=== PATIENT | female | born 1945 | race Caucasian/White ===

== ENCOUNTER 2020-04-10 12:57 | Outpatient (CLI) | payer MEDICARE, OTHER, SELFPAY ==
--- NOTE | ~2020-04-10 | XR_ITS ---
EXAMINATION: XR lg joint inject/asp w image DATE: 04/10/2020 14:32 INDICATION: Unilateral primary osteoarthritis of the right hip. TECHNIQUE: A time-out was performed to verify the patient's name, date of , and procedure to b e performed. The procedure including the risks, benefits, and alternatives was discussed with the pat ient. Risks discussed included bleeding and infection. The patient understood the risks and agreed to proceed. The skin overlying the right hip joint was prepped and draped in usual sterile fashion. A nesthetic was administered with 1% lidocaine subcutaneously. A 22 G needle was advanced under fluoro scopic guidance into the joint. Injection of 0.6 mL of Omnipaque 240 confirmed intra-articular posit ion of the needle. Subsequently, injectate consisting of 7 mL of a 5:2 mixture of 1% lidocaine: 10 m g/mL Kenalog for a total dose of 20 mg Kenalog was instilled. Washout of contrast was seen confirming intra-articular administration. The needle was removed and the entry site was cleaned and dressed. There were no immediate complications. Fluoroscopy exposure time was 0.1 minutes. The total number of images was 2. FINDINGS: Real-time fluoroscopy demonstrates the needle in the right hip joint. Patient's pain prior to procedure:4/10. Patient's pain following the procedure: 11/09. Moderate osteoarthritis at the righ t hip. IMPRESSION: 1. Right hip joint injection of local anesthetic and steroid with decrease in the patient's presentin g pain. Reviewed, dictated and finalized at location A. IMPRESSION: 1. Right hip joint injection of local anesthetic and steroid with decrease in t he patient's presenting pain.
== END 2020-04-10 12:58 | disposition home or self-care (01) ==
PROVIDERS: Visit Provider Orthopaedic Surgery
DX: M16.11 Unilateral primary osteoarthritis, right hip (principal)
CPT/HCPCS: 20610; 77002; J3301; Q9966

== ENCOUNTER 2021-01-02 12:43 | Inpatient (IN) | payer MEDICARE, OTHER, SELFPAY ==
[2021-01-02] VITALS (10 sets, daily range): BP systolic 118–149; BP diastolic 72–89; PULSE 78–99; RESP 16–20; TEMP 36.1–36.8; O2SAT 94–100; BMI 24.5
--- NOTE | ~2021-01-02 | XR_ITS ---
EXAMINATION: XR chest 1V portable EXAM DATE: 01/02/2021 13:13 INDICATION: Chest pain. TECHNIQUE: Portable AP frontal chest x-ray was obtained. There is no prior study for comparison. FINDINGS: Right upper lobe granuloma. The lungs are otherwise clear. There are no pleural effusions. Cardiac silhouette is prominent but magnified on this AP technique. There is no pneumothorax susp ected. The bones and soft tissues are unremarkable. IMPRESSION: No acute cardiopulmonary findings. Reviewed, dictated and finalized at location A. L WINDOW SCREEN ASSEMBLER
--- NOTE | ~2021-01-02 | CT_ITS ---
EXAMINATION: CTA chest PE protocol DATE: 01/02/2021 14:18 INDICATION: Right chest pain. TECHNIQUE: Computed tomography angiography (CTA) of the chest was performed with 100 mL Omnipaque-350 intravenous contrast timed to evaluate the pulmonary arteries. Coronal maximum intensity projection 3D-reconstructions were created by the technologist. Automated exposure control and iterative reconst ruction technique were employed. The dose-length product was 196.65 mGy-cm. COMPARISON: Chest single view 01/02/2021 FINDINGS: There is mild scarring at right lung apex. There is normal atelectasis bilaterally. A calci fied right lung nodule and calcified right hilar lymph nodes are consistent with old granulomatous di sease. There is a small pneumatocele in right lower lobe. No pleural effusion. Cardiomegaly is noted. There is no pulmonary embolus. There is mild aortic atherosclerosis. Splenomegaly is noted measuring at least 14.9 cm. There is a 13 mm cyst in the liver. There is moderate thoracic spondylosis. There are ill-defined areas of sclerosis scattered in many of the bones including the ribs, sternum, and T1 1 vertebral body. IMPRESSION: 1. No pulmonary embolus. 2. Scattered sclerotic lesions of bone. The differential diagnosis includes myelofibrosis, metastatic disease, and metabolic abnormality. 3. Splenomegaly. Reviewed, dictated and finalized at location A. E FILLER IMPRESSION: 1. No pulmonary embolus. 2. Scattered sclerotic lesions of bone. The differential diagnosis includes mye lofibrosis, metastatic disease, and metabolic abnormality. 3. Splenomegaly.
--- NOTE | 2021-01-02 12:48 | ED.CHESTPAIN ---
HPI - Chest Pain General Chief Complaint: Chest Pain Stated Complaint: chest pain Time Seen by Provider: 01/02/21 12:48 History of Present Illness HPI narrative: 75 yo female w/ h/o PCV, myelofibrosis presents to the ED for chest/shoulder pain. Pain by the right scapula and radiating into the chest for the past 2 days. Made worse by deep breathing. Associated with fatigue. She had her first COVID-19 vaccination 8 days ago. No fever, nausea, vomiting, cough, SOB. Related Data Home Medications Medication Instructions Recorded Confirmed aspirin 81 mg tablet,delayed 81 mg PO DAILY 04/02/20 01/02/21 release biotin 5,000 mcg disintegrating 5,000 mcg PO DAILY tablet 04/02/20 01/02/21 tablet cholecalciferol (vitamin D3) 50 50 mcg PO DAILY 04/02/20 01/02/21 mcg (2,000 unit) capsule diltiazem HCl 180 mg 180 mg PO DAILY 04/02/20 01/02/21 capsule,extended release 24 hr losartan 100 mg tablet 100 mg PO DAILY 04/02/20 01/02/21 paroxetine HCl 10 mg tablet 5 mg PO DAILY tablet 04/02/20 01/02/21 pregabalin 150 mg capsule 150 mg PO DAILY 04/02/20 01/02/21 ruxolitinib 10 mg tablet 15 mg PO BID 04/02/20 01/02/21 Allergies Allergy/AdvReac Type Severity Reaction Status Date / Time No Known Allergies Allergy Mild Verified 01/02/21 13:01 Review of Systems Review of Systems: All systems reviewed & are unremarkable except as noted in HPI and below Constitutional: Constitutional: Denies chills, Reports fatigue and Denies fever(s) ENT: Reports dizziness Cardiovascular: Cardiovascular: Reports chest pain and Denies radiating jaw, neck or arm pain Respiratory: Respiratory: Denies cough and Denies dyspnea Gastrointestinal: Gastrointestinal: Denies abdominal pain and Denies nausea Neurologic: Reports dizziness and Denies weakness [facility] Past Medical History Medical History (Updated 01/03/21 @ 15:32 by Rik Ardon MD) Hypertension 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 Code status: Full code. Smoking packs per day: 0.25 Smoking cigarettes per day: 5.0 Years smoked: 10 Smoking pack-years: 2.50 Smoking status: Former smoker Tobacco type: cigarettes Alcohol intake: current Additional living arrangements comments: The patient lives in [place] with her . Additional occupation/education comments: Retired from the [employer]. Gender identity (if verbalized by the patient): Female Spiritual care concerns: No Exam Const: General: healthy appearing, no acute distress and alert Orientation/consciousness: patient oriented x3 HENMT: Head: normal to inspection Eyes: Conjunctivae: conjunctivae normal Pupils: Equal, round and reactive pupils present EOM: EOMs intact bilaterally Resp: Effort & Inspection: normal respiratory effort Auscultation: clear to auscultation bilaterally Cardio: Rate: regular rate Rhythm: regular rhythm GI: Inspection: non-distended Skin: General skin exam: normal color Neuro: General: patient oriented x3, moves all extremities, no focal motor deficits and CN's II-XI intact bilaterally Speech: normal speech Gait exam (Neuro): Normal gait present Extrem: General: normal to inspection Course Vital Signs Vital signs: Vital Signs Temperature 36.6 C 01/02/21 12:56 Pulse Rate 87 01/02/21 12:56 Respiratory Rate 20 01/02/21 12:56 Blood Pressure 141/89 H 01/02/21 12:56 Pulse Oximetry 100 01/02/21
--- NOTE | 2021-01-02 12:59 | ECG_ITS ---
Measurements Intervals [place] Rate: 80 P: 51 DC: 149 QRS: 2 QRSD: 85 T: 6 QT: 392 QTc: 452 Interpretive Statements SINUS RHYTHM BORDERLINE ST ABNORMALITY- ANTEROLATERAL LEADS BASELINE WANDER- II, III, AVF BORDERLINE ECG Electronically Signed On 01-02-2021 13:35:38 GM MOBILE by Ivan Roche D.O.
[2021-01-02 13:19] LABS: Hematocrit 41.9 % (37.0-47.0); Hemoglobin 12.9 g/dL (12.0-15.0); Mean Corpuscular HGB Conc 30.8 g/dl (32-36); Mean Corpuscular Hemoglobin 24.2 pg (26-34); Mean Corpuscular Volume 78.6 fl (80-100); Mean Platelet Volume 10.5 fl (7.4-10.4); Platelet Count Result 710 k/mm3 (150-375); Red Blood Count 5.33 M/mm3 (4.2-5.4); Red Cell Distribution Width 22.2 % (11.5-14.5)
[2021-01-02 13:25] LABS: White Blood Count 57.6 K/mm3 (4.5-10.0)
[2021-01-02 13:28] LABS: INR 1.2; Prothrombin Time 15.6 Seconds (11.1-14.7)
[2021-01-02 13:30] LABS: Anion Gap 8 mmol/L (8-16); Blood Urea Nitrogen 13 mg/dL (7-17); Calcium 9.1 mg/dL (8.4-10.2); Carbon Dioxide 29 mmol/L (22-30); Chloride 104 mmol/L (98-107); Estimated CRCL calculation 31 ml/min; Estimated Glomerular Filt Rate 54; Glucose 97 mg/dL (65-105); Potassium 3.7 mmol/L (3.4-5.0); Sodium 141 mmol/L (137-145)
[2021-01-02 13:40] LABS: D Dimer 0.67 ug/mL (<0.48)
[2021-01-02 13:41] LABS: Band Neutrophils Percent 9 % (0-6); Basophils Absolute Manual 1.72 K/mm3 (0.0-0.1); Basophils Percent Manual 3 % (0-1); Eosinophils Absolute Manual 1.15 K/mm3 (0.02-0.5); Eosinophils Percent Manual 2 % (0-4); Lymphocytes Absolute Manual 6.91 K/mm3 (1.1-4.5); Monocytes Absolute Manual 5.18 K/mm3 (0.1-0.90); Monocytes Percent Manual 9 % (3-9); Neutrophils Absolute Manual 42.62 K/mm3 (1.7-7.2); Neutrophils Percent Manual 65 % (46-73); Platelet Estimate Increased (Adequate); Total Cells Counted 100
[2021-01-02 13:42] LABS: Ovalocytes 1+ (NORMAL)
[2021-01-02 13:45] LABS: Add Urine Microscopic? YES; Appearance Urine Cloudy (Clear); Bacteria Urine Trace /hpf; Bilirubin Urine Negative (Negative); Blood Urine Negative (Negative); Color Urine Yellow (Yellow); Glucose Urine UA Negative (Negative); Ketones Urine Negative (Negative); Leukocyte Esterase Ur 3+ LEU/UL (Negative); Mucus Urine Rare /lpf; Nitrate Urine Negative (Negative); Protein Urine Negative (Negative); Specific Grav Ur 1.009 (1.001-1.035); Squamous Epithelial Cell Urine Few /hpf (Few); Urobilinogen Urine Negative mg/dL (<2.0); WBC Urine 31-50 /hpf
[2021-01-02 13:48] LABS: Troponin I 0.212 ng/mL (0.000-0.034)
--- NOTE | 2021-01-02 14:04 | PC.NURSE ---
called lab, Vee, added on BNP [id number]
[2021-01-02 14:25] LABS: NT Pro B Type Natriuretic Pept 2800 PG/ML (5-100)
[2021-01-02] MEDS: ASPIRIN 81 MG CHEWABLE TABLET 324 MG PO (14:34)
[2021-01-02] MEDS: MORPHINE SULFATE (*CRX) 2 MG/ML INJ IV PUSH (14:34)
--- NOTE | 2021-01-02 16:00 | PM.IMHP ---
H&P: HPI History of Present Illness Date/Time: 01/02/21 16:00 Chief Complaint: Chest pain. 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 She reports sharp, right anterior chest pain over the past couple of days radiating into the scapula. The pain seems to be worse with deep inspiration and she has not noticed any significant alleviating factors. She has also felt much more fatigued than usual. Today while walking up a flight of steps she became significantly winded and felt as though her heart was beating hard. Additionally she describes about a 5 minutes time. In which her vision was somewhat blurry while watching television. Initially there were concerns for pulmonary embolism but a CTA of the chest in the emergency department was negative for such. Her troponin was elevated and she is being admitted in this setting. At the time my evaluation she continues to have intermittent right anterior chest discomfort but states is improved since receiving morphine. She walks 20 minutes on the treadmill most days a week and has never had exertional chest pain or shortness of breath. She denies associated nausea, vomiting, and sweats. No epigastric or abdominal discomfort. She denies GERD and indigestion symptoms. Review of Systems Review of Systems: Narrative: Twelve systems were reviewed with pertinent positives and negatives as per HPI. White blood cell count was 19764 in September 2020. She has not required therapeutic phlebotomy for about 4 months. No fever, chills, or sweats. No recent cold or flu symptoms. She denies cough. No vertigo, diplopia, auditory changes, focal weakness, or paresthesias. No dysuria, urgency, hesitancy, or incontinence. Except as documented, all other systems were reviewed and are negative. 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 Code status: Full code. Smoking packs per day: 0.25 Smoking cigarettes per day: 5.0 Years smoked: 10 Smoking pack-years: 2.50 Smoking status: Former smoker Tobacco type: cigarettes Alcohol intake: current Additional living arrangements comments: The patient lives in [place] with her . Additional occupation/education comments: Retired from the [employer]. Gender identity (if verbalized by the patient): Female Spiritual care concerns: No Meds Home Medications and Allergies Home Medications Medication Instructions Recorded Confirmed Type aspirin 81 mg tablet,delayed 81 mg PO DAILY 04/02/20 01/02/21 History release biotin 5,000 mcg disintegrating 5,000 mcg PO DAILY tablet 04/02/20 01/02/21 History tablet cholecalciferol (vitamin D3) 50 50 mcg PO DAILY 04/02/20 01/02/21 History mcg (2,000 unit) capsule diltiazem HCl 180 mg 180 mg PO DAILY 04/02/20 01/02/21 History capsule,extended release 24 hr losartan 100 mg tablet 100 mg PO DAILY 04/02/20 01/02/21 History paroxetine HCl 10 mg tablet 5 mg PO DAILY tablet 04/02/20 01/02/21 History pregabalin 150 mg capsule 150 mg PO DAILY 04/02/20 01/02/21 History ruxolitinib 10 mg tablet 15 mg PO BID 04/02/20 01/02/21 History Allergies Allergy/A
[2021-01-02 16:02] LABS: Troponin I 0.235 ng/mL (0.000-0.034)
--- NOTE | 2021-01-02 16:05 | PC.NURSE ---
called to give report. states RN unavailable and will call back
--- NOTE | 2021-01-02 16:14 | PC.NURSE ---
called to give report. States RN in pt room and will call back
--- NOTE | 2021-01-02 18:52 | PC.NURSE ---
This patient, Laurel Gibbs, was admitted to IMU Room 201-01 at 1641. Patient/family oriented to hospital policies and general routines including ID bracelet, bed and alarms, visiting hours, pain management, procedures, bathroom and other care routines, personal items, smoking policy, room service/diet, and visiting hours. Information on how to activate the Rapid Response Team has been discussed. Patient/Family are encouraged to report perceived risks to care and to ask questions if they do not understand what they are told or what they should do.
--- NOTE | 2021-01-02 19:56 | ECG_ITS ---
Measurements Intervals [place] Rate: 85 P: 60 [place]: 174 QRS: -5 QRSD: 77 T: -5 QT: 376 QTc: 450 Interpretive Statements SINUS RHYTHM SUPRAVENTRICULAR TRIGEMINY AND VENTRICULAR PREMATURE COMPLEX BORDERLINE T WAVE ABNORMALITY- INFERIOR LEADS ABNORMAL ECG Electronically Signed On 01-03-2021 6:57:38 SURFACING TECHNICIAN by Ivan Roche D.O.
[2021-01-02 20:03] LABS: Magnesium 2.1 mg/dL (1.6-2.3)
[2021-01-02] MEDS: ENOXAPARIN 60 MG/0.6 ML SYRINGE SUB-Q (20:05)
[2021-01-02 20:18] LABS: Troponin I 0.268 ng/mL (0.000-0.034)
[2021-01-02 20:33] LABS: Erythrocyte Sedimentation Rate 5 mm/hr (0-20)
[2021-01-02 20:43] LABS: Alanine Aminotransferase 13 U/L (4-35); Alkaline Phosphatase 94 U/L (38-126); Aspartate Amino Transferase 46 U/L (14-36); Bilirubin,Total 0.4 mg/dL (0.2-1.3)
[2021-01-02] MEDS: ACETAMINOPHEN 325 MG TABLET 650 MG PO (20:57)
[2021-01-02 20:58] LABS: CRP 2.8 mg/dL (<1.0)
[2021-01-03] VITALS (21 sets, daily range): BP systolic 100–135; BP diastolic 67–91; PULSE 60–136; RESP 12–16; TEMP 36.1–37.1; O2SAT 94–99
--- NOTE | 2021-01-03 | ECHO_ITS ---
Patient Info Name: Laurel Gibbs Age: 75 years : 1945 Gender: Female Ht: 61 in Wt: 126 lbs BSA: 1.58 m2 HR: 115 bpm BP: 130 / 91 mmHg Heart Rhythm: Sinus Rhythm Technical Quality: Good Exam Date: 01/03/2021 12:20 PM Exam Location: [facility] Pulmonary Patient Status: Inpatient Admit Date: 01/03/2021 Staff Ordering Physician: Can Lo MD Lens Engraver: Jessi Ulloa RDCS Attending Provider: Can Lo MD Exam Type: CA echo doppler color flow Summary 1. Left ventricular chamber dimension is normal. 2. Left ventricular systolic function is hyperdynamic, estimated at >70%. 3. Systolic function is hyperdynamic. 4. Left atrial chamber dimension is moderately enlarged. 5. The mitral valve has normal leaflets. 6. The mitral valve annulus is moderately calcified. 7. There is a large mobile well-circumscribed mass associated with the posterior mitral valve leaflet. 8. This mitral valve mass could represent a vegetation or a myxoma of unusual location. Left Ventricle Left ventricular chamber dimension is normal. Left ventricular systolic function is hyperdynamic, estimated at >70%. The left ventricular diastolic function is normal. Systolic function is hyperdynamic. Right Ventricle Right ventricular chamber dimension is normal. Left Atria Left atrial chamber dimension is moderately enlarged. Right Atria Right atrial chamber dimension is normal. Aortic Valve The aortic valve is trileaflet. There is mild aortic valve sclerosis. Pulmonic Valve The pulmonic valve is not well visualized. Mitral Valve The mitral valve has normal leaflets. There is trace mitral valve regurgitation. Large mitral valve vegetation visualized. The mitral valve annulus is moderately calcified. There is a large mobile well-circumscribed mass associated with the posterior mitral valve leaflet. This mitral valve mass could represent a vegetation or a myxoma of unusual location. Tricuspid Valve The tricuspid valve leaflets are normal. Pericardium/Pleural The pericardium appears normal. Aorta The aortic root size at the sinus of Valsalva is normal. Left Ventricular Outflow Tract Name Value Normal LVOT 2D LVOT Diameter 1.8 cm LVOT Doppler LVOT Peak Velocity 107 cm/s LVOT Peak Gradient 4 mmHg LVOT Mean Gradient 2 mmHg LVOT VTI 17 cm LVOT VTI/AV VTI Ratio 0.7 LVOT Stroke Volume 45 ml LVOT CO 4.4 l/min LVOT CI 2.8 l/min/m2 Pulmonic Valve Name Value Normal PV Doppler PV Peak Velocity 67 cm/s PV Peak Gradient 2 mmHg Mitral Valve
[2021-01-03 05:32] LABS: Hematocrit 41.5 % (37.0-47.0); Hemoglobin 12.9 g/dL (12.0-15.0); Mean Corpuscular HGB Conc 31.1 g/dl (32-36); Mean Corpuscular Hemoglobin 24.7 pg (26-34); Mean Corpuscular Volume 79.3 fl (80-100); Mean Platelet Volume 10.5 fl (7.4-10.4); Platelet Count Result 619 k/mm3 (150-375); Red Blood Count 5.23 M/mm3 (4.2-5.4); Red Cell Distribution Width 22.5 % (11.5-14.5); White Blood Count 47.5 K/mm3 (4.5-10.0)
[2021-01-03 05:45] LABS: Anion Gap 6 mmol/L (8-16); Blood Urea Nitrogen 13 mg/dL (7-17); Calcium 8.7 mg/dL (8.4-10.2); Carbon Dioxide 29 mmol/L (22-30); Chloride 106 mmol/L (98-107); Estimated CRCL calculation 36 ml/min; Estimated Glomerular Filt Rate > 60; Glucose 93 mg/dL (65-105); Potassium 3.6 mmol/L (3.4-5.0); Sodium 141 mmol/L (137-145)
[2021-01-03] MEDS: ENOXAPARIN 60 MG/0.6 ML SYRINGE SUB-Q ×2 (06:19→16:39)
[2021-01-03 07:51] LABS: Cholesterol 109 mg/dL (0-200); HDL Direct 22 mg/dL; Triglycerides 110 mg/dL (<150)
[2021-01-03 08:02] LABS: LDL Cholesterol Direct 58 mg/dL
[2021-01-03 08:07] LABS: Troponin I 0.228 ng/mL (0.000-0.034)
[2021-01-03] MEDS: LOSARTAN POTASSIUM 100 MG TABLET PO (09:11)
[2021-01-03] MEDS: PREGABALIN (*CRX) 75 MG CAPSULE 150 MG PO (09:11)
[2021-01-03] MEDS: dilTIAZem HCL CD 180 MG CAP.ER.24H PO (09:12)
[2021-01-03] MEDS: ASPIRIN 81 MG ENTERIC TABLET PO (09:12)
[2021-01-03] MEDS: CHOLECALCIFEROL 1,000 UNITS TABLET 2000 UNITS PO (09:12)
--- NOTE | 2021-01-03 09:52 | PM.IMPN ---
Progress Note: A&P Assessment and Plan (1) Atrial fibrillation: Code(s): I48.91 - Unspecified atrial fibrillation Status: Acute Assessment and Plan: Patient this morning developed tachycardia. Tele reviewed showing AFib. Stat EKG showing AFib with RVR and ST depression in the anterolateral leads with PVC. Start Metoprolol. IV metoprolol times one. Continue full dose Lovenox. Cardiology has been consulted and appreciate their input. Check TSH (2) Right-sided chest pain: Code(s): R07.9 - Chest pain, unspecified Status: Acute Assessment and Plan: Atypical presentation for cardiac pain but with positive Troponin. CTA chest showing no PE but splenomegaly and myelofibrosis. Troponin peaked at 0.27. EKG on admission showing borderline ST changes but overall normal appearing EKG. Therapeutic dose of Lovenox started. Continue ASA. Lipid panel results noted. Add Lipitor. As above, will also add Metoprolol. (3) Elevated troponin: Code(s): R77.8 - Other specified abnormalities of plasma proteins Status: Acute Assessment and Plan: In the setting of atypical right-sided chest pain. Troponin peaked at 0.27. As above. (4) Hypertension: Qualifiers: Hypertension type: essential hypertension Qualified Code(s): I10 - Essential (primary) hypertension Code(s): I10 - Essential (primary) hypertension Status: Chronic Assessment and Plan: Blood pressures reviewed 3/6 Blood pressure remains well controlled. Will continue current medications with Diltiazem for now. (5) Abnormal urinalysis: Code(s): R82.90 - Unspecified abnormal findings in urine Status: Acute Assessment and Plan: Urinalysis showing 3+ LE with 31-50WBC. No abx started. UCx pending. 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 WBC 58K on admisison but better today at 47K. Plt count elevated as well but trending down. No anemia. Ruxolitinib resumed. (7) DVT prophylaxis: Code(s): Z29.9 - Encounter for prophylactic measures, unspecified Status: Acute Assessment and Plan: Currently on Lovenox therapeutic dose Subjective Date/time seen: 01/03/21 09:52 Interval history: Date of service 01/03 75yo female with HTN, PCV and myelofibrosis here for chest pain. Chest pain was in the upper right chest and radiated to the right upper back. Not pleuritic. Not associated with food. s/p CCY. Chest pain gone now but feels 'terrible' with achiness, WISDOM and fatigue. No SOB, nausea or vomiting. Does have upper abd pain. No anosmia or dysgeusia. No fever, chills. No cough, dysuria or hematuria. She has been having dificulty starting a urine stream and voiding only small volumes. Also had a toe pulled recently and area still feels sore at times. Complains also of left lower back pain. Exam Narrative: Exam Narrative: AF 98.7 130/91 136 16 97% ra Gen - NARD sitting up at the side of the bed Chest - CTA bilaterally, nml RR CV - tachycardic, irregular; Tele showing AFib with RVR Abd - Soft, ND, Positive BS with mild epigastric pain and fullness. possible spleen tip appreciated. Back - pain in the right marlene sacral region; no CVA tenderness Ext - No pedal edema, 2+ DP bilaterally Neuro - Alert and oriented. Nonfocal exam. Psych - Nml mood and affect Skin - Warm and dry Objective Data Vital Signs Vital Signs: Vital Signs - 24 hr 01/02/21 12:56 01/02/21 13:01 01/02/21 14:37 Temperature 97.8 F Pulse Rate 87 87 96 Respiratory Rate 20 20 Blood Pressure 141/89 H 149/88 H Pulse Oximetry 100 100 01/02/21 15:52 01/02/21 16:37 01/02/21 16:41 Temperature Pulse Rate 99 99 87 Respirat
--- NOTE | 2021-01-03 09:59 | ECG_ITS ---
Measurements Intervals [place] Rate: 131 P: SC: 0 QRS: 15 QRSD: 78 T: -21 QT: 313 QTc: 462 Interpretive Statements ATRIAL FIBRILLATION WITH RAPID VENTRICULAR RESPONSE VENTRICULAR PREMATURE COMPLEX ST-T WAVE ABNORMALITY IN ANTEROLATERAL LEADS- CONSIDER ISCHEMIA ABNORMAL ECG Electronically Signed On 01-03-2021 15:04:26 DIRECTOR OF MEDICAL EDUCATION by Ivan Roche D.O.
--- NOTE | 2021-01-03 10:44 | PM.CNCAR ---
Assessment and Plan Additional Plan This is a 75-year-old lady who has a history of myelofibrosis presenting to the hospital with a chest pain syndrome that seems to be nonischemic by history. Incidentally while she is in the hospital she has been found to have paroxysmal atrial fibrillation. It sounds like by history she probably has is going on off and on at home but has not really brought it up to her physicians attention. I do not believe we need to initiate an ischemia workup at this time as her troponin levels are out of normal range but they are flat without a any typical pattern of an acute coronary syndrome. I am going to recommend starting antiarrhythmic therapy in the form of sotalol and for that reason I will discontinue her diltiazem at this time. I am going to keep her on Lovenox for the time being she is on full-dose Lovenox and therefore is systemically anticoagulated. An echocardiogram has already been ordered by the hospitalist I will review that later in terms of the structural basis of this atrial fib. The told the patient and her that I would anticipate her being in the hospital for probably a couple of days while we initiate antiarrhythmic therapy to assess her response to this. After I look at the echocardiogram, probably tomorrow we will transition her to a oral anticoagulant. Thank you for asking me to see this lady in consultation. Epifanio Gonsales MD [facility] History of Present Illness History of Present Illness Consult date/time: 01/03/21 10:44 Consult reason: chest pain and atrial fibrillation Reason For Visit: chest pain Narrative: This is a 75-year-old woman who is being seen in consultation request this morning at the hospitalist request initially because of abnormal troponin values and also this morning because of atrial fibrillation. She had does not have any history of any known cardiac pathology in the past. She came to the emergency room yesterday primarily because she was having some chest pain. This started couple of days ago she described a relatively sharp intermittent pain in the right precordial region radiating back to the right interscapular region. This discomfort would be aggravated by taking a deep breath when it was there otherwise she had no other aggravating or alleviating symptoms. In the emergency room her electrocardiogram did not show any acute ischemic or injury abnormalities her troponin level was interestingly elevated at 0.2 and she was thusly admitted to the hospital. In the hospital IMU she has been feeling reasonably well overnight she still has some of this pain off and on that is as described above. Interestingly this morning she reverted from sinus rhythm to atrial fib with moderately rapid ventricular response heart rate seems to be in the 120-130 range. She is minimally aware of this. She states that at home for maybe a couple of years or more she has episodes where she does notice tachycardia and palpitations if she is sitting quietly or lying in bed. The symptoms generally do not cause her to be in any other distress and they usually resolve a short time on their own so she has really not brought them up for medical discussion when she sees her physician. She has an internists that she sees for hypertension in general medical needs out at [facility]. She also has the diagnosis of polycythemia rubra vera and what she describes as a transition into of myelofibrosis syndrome within the last couple of years. She therefore has a very high platelet count and a high white cell count. She follows with a environmental services project manager at [facility] for that. Review of Systems Constitutional: Constitutional: Reports no additional constitutional complaints Eyes: Eyes: Reports no additional eye complaints ENT: Reports system reviewed and no additional complaints, except as documented Cardiovascular: Cardiovascular: Reports palpitations Respiratory: Respiratory: Reports no additional respi
[2021-01-03] MEDS: METOPROLOL TARTRATE INJ 5 MG/5 ML VIAL IV PUSH (10:45)
[2021-01-03] MEDS: ACETAMINOPHEN 325 MG TABLET 650 MG PO (10:54)
--- NOTE | 2021-01-03 11:30 | PHAR ---
Drug Name: Jakafi Ingredients: Ruxolitinib Phosphate -- 15 MG Related Documents: DRUGDEX Evaluations - RUXOLITINIB Color: White Shape: Oval Imprint: 15 , INCY Form: Oral Tablet
[2021-01-03] MEDS: PARoxetine 5 MG TABLET PO (11:52)
[2021-01-03] MEDS: SOTALOL HCL 80 MG TABLET PO ×2 (11:52→20:44)
[2021-01-03] MEDS: PANTOPRAZOLE 40 MG TABLET PO (11:52)
[2021-01-03] MEDS: ATORVASTATIN 40 MG TABLET PO (11:53)
[2021-01-03] MEDS: AMPICILLIN SULB 3 GM/NS 100 ML 3 GM/100 ML VIAL IVPB ×3 (13:21→23:24)
--- NOTE | 2021-01-03 13:55 | ECG_ITS ---
Measurements Intervals [place] Rate: 75 P: 69 TN: 175 QRS: -3 QRSD: 80 T: -40 QT: 286 QTc: 320 Interpretive Statements SINUS RHYTHM NONSPECIFIC ST & T-WAVE ABNORMALITY- ANTEROLAT/INF LEADS BASELINE ARTIFACT- I, II, AVR, AVL, AVF, V3-V6 BORDERLINE ECG Electronically Signed On 01-03-2021 15:10:18 OBGYN NURSE by Ivan Roche D.O.
--- NOTE | 2021-01-03 22:45 | ECG_ITS ---
Measurements Intervals [place] Rate: 78 P: 67 VA: 169 QRS: 21 QRSD: 85 T: -34 QT: 429 QTc: 491 Interpretive Statements SINUS RHYTHM FREQUENT ATRIAL PREMATURE COMPLEXES NONSPECIFIC ST & T-WAVE ABNORMALITY- ANTEROLAT/INF LEADS ABNORMAL ECG Electronically Signed On 01-04-2021 7:39:45 BOILER FIREMAN by Ivan Roche D.O.
[2021-01-04] VITALS (19 sets, daily range): BP systolic 97–129; BP diastolic 65–90; PULSE 68–92; RESP 14–16; TEMP 36.1–36.9; O2SAT 97–98
[2021-01-04] MEDS: ENOXAPARIN 60 MG/0.6 ML SYRINGE SUB-Q (05:54)
[2021-01-04] MEDS: AMPICILLIN SULB 3 GM/NS 100 ML 3 GM/100 ML VIAL IVPB ×4 (05:54→23:57)
[2021-01-04 06:33] LABS: Anion Gap 3 mmol/L (8-16); Blood Urea Nitrogen 13 mg/dL (7-17); Calcium 8.8 mg/dL (8.4-10.2); Carbon Dioxide 29 mmol/L (22-30); Chloride 110 mmol/L (98-107); Estimated CRCL calculation 33 ml/min; Estimated Glomerular Filt Rate 54; Glucose 98 mg/dL (65-105); Potassium 3.5 mmol/L (3.4-5.0); Sodium 142 mmol/L (137-145)
[2021-01-04] MEDS: SOTALOL HCL 80 MG TABLET PO ×2 (08:52→21:12)
[2021-01-04] MEDS: PARoxetine 5 MG TABLET PO (08:53)
[2021-01-04] MEDS: PANTOPRAZOLE 40 MG TABLET PO (08:54)
[2021-01-04] MEDS: LOSARTAN POTASSIUM 100 MG TABLET PO (08:54)
[2021-01-04] MEDS: ATORVASTATIN 40 MG TABLET PO (08:55)
[2021-01-04] MEDS: CHOLECALCIFEROL 1,000 UNITS TABLET 2000 UNITS PO (08:55)
[2021-01-04] MEDS: ASPIRIN 81 MG ENTERIC TABLET PO (08:55)
[2021-01-04] MEDS: PREGABALIN (*CRX) 75 MG CAPSULE 150 MG PO (08:58)
--- NOTE | 2021-01-04 09:58 | PM.PNCARD ---
Progress Note: A&P Additional Plan 75-year-old lady with paroxysmal atrial fibrillation now in sinus rhythm on sotalol anticoagulated with Lovenox. I am going to shift her to apixaban starting with this evening's dose. Because of her mitral valve mass lesion air aerobic anaerobic and fungal blood cultures are being done. My clinical suspicion however is that this is not endocarditis since the patient is not clinically septic and there is minimal if any mitral regurgitation. Typically a large vegetation such as this would have caused an of structural disruption of the valved resulted significant regurgitation. This has resulted in some enlargement of her left atrium which appears to be the etiology of her atrial fibrillation. If she is maintaining sinus rhythm and having no proarrhythmic issues she can probably be discharged tomorrow if her blood cultures remained sterile. She will need to follow up with cardiothoracic surgery for this mitral valve mass lesion. Patient has indicated that any invasive procedures and/or surgery would need to be done downtown at [facility] as per the recommendation of her client service supervisor as I mentioned in my H and P. Epifanio Gonsales MD [facility] Subjective Date/time seen: Date of service: 01/04/21 09:58 Interval history: 75-year-old lady with: Paroxysmal atrial fibrillation seen in consultation yesterday and started on sotalol. Shortly after the 1st dose she has converted back to sinus rhythm is currently asymptomatic. She is currently anticoagulated with Lovenox. Echocardiogram done yesterday surprisingly shows a large mass associated with the posterior mitral valve leaflet. I received a phone notification of this yesterday from the geoscience technician indicating they were concerned about a vegetation. 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 Had a long discussion with the patient about this today. She is asymptomatic and feels well Exam Const: General: comfortable and no acute distress HENMT: Mouth: Yes moist mucous membranes Eyes: Sclera: sclerae normal Pupils: Equal, round and reactive pupils present Neck: Neck: supple and no JVD Thyroid: thyroid normal Resp: Effort & Inspection: normal respiratory effort Auscultation: clear to auscultation bilaterally Cardio: Rate: regular rate Rhythm: regular rhythm Other: Patient has a systolic ejection murmur at the right upper sternal border because of her aortic sclerosis. No audible MR GI: GI Palp: Yes Soft to palpation Auscultation: normal bowel sounds Skin: General skin exam: normal color Neuro: Cognition (Neuro): normal cognition Extrem: General: normal to inspection Objective Data Vital Signs Vital Signs: Vital Signs - 24 hr 01/03/21 10:00 01/03/21 10:45 01/03/21 11:52 Temperature Pulse Rate 136 H 135 H 113 H Respiratory Rate Blood Pressure Pulse Oximetry 01/03/21 12:00 01/03/21 12:48 01/03/21 14:00 Temperature 36.7 C Pulse Rate 113 H 85 76 Respiratory Rate 12 Blood Pressure 113/70 Pulse Oximetry 95 01/03/21 16:00 01/03/21 18:00 01/03/21 19:22 Temperature 37.0 C 36.2 C L Pulse Rate 75 84 91 Respiratory Rate 16 15 Blood Pressure 100/69 109/67 Pulse Oximetry 96 96 01/03/21 20:00 01/03/21 20:44 01/03/21 22:00 Temperature Pulse Rate 82 63 60 Respiratory Rate Blood Pressure Pulse Oximetry 01/03/21 23:37 01/04/21 00:00 01/04/21 02:00 Temperature 36.2 C L Pulse Rate 78 79 72 Respiratory Rate 16 Blood Pressure 117/81 Pulse Oximetry 94 01/04/21 04:00 01/04/21 06:00 01/04/21 07:58 Temperature 36.1 C L 36.1 C L Pulse Rate 74 76 75 Respiratory Rate 16 16 Blood Pressure 124/79 129/90 Pulse Oximetry 97 98 01/04/21 08:52 Temperature Pulse Rate
--- NOTE | 2021-01-04 11:00 | ECG_ITS ---
Measurements Intervals [place] Rate: 78 P: 70 MN: 164 QRS: 2 QRSD: 84 T: -19 QT: 382 QTc: 437 Interpretive Statements SINUS RHYTHM ATRIAL PREMATURE COMPLEXES NONSPECIFIC ST & T-WAVE ABNORMALITY- DIFFUSE LEADS BASELINE ARTIFACT- I, II, AVR, AVL, AVF BORDERLINE ECG Electronically Signed On 01-04-2021 14:19:45 SERVICE TEAM LEADER by Ivan Roche D.O.
[2021-01-04] MEDS: LOPERAMIDE HCL 2 MG CAPSULE PO (11:51)
--- NOTE | 2021-01-04 15:08 | PM.IMPN ---
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 Called by RN on 01/03/21 and BCx ordered and IV abx stared. Patient has had a recent tooth pulled and she is immunosuppressed. She does not have significant valvular damage. Discussed with Cardiology. Plan to monitor blood cultures with IV antibiotics on board. If blood cultures remain negative for 2 days, will plan discharge with patient to follow-up with Cardiothoracic surgery given the high likelihood myxoma. (2) Atrial fibrillation: Code(s): I48.91 - Unspecified atrial fibrillation Status: Acute Assessment and Plan: Patient developed AFib and probably paroxysmal by hx. EKG showing AFib with RVR and ST depression in the anterolateral leads with PVC. TSH normal. Given IV metoprolol and started on Sotalol. Full dose Lovenox but now changed to Eliquis. She has converted with sinus arrhythmias and PACs now. Cardiology following and appreciate their input. (3) Right-sided chest pain: Code(s): R07.9 - Chest pain, unspecified Status: Acute Assessment and Plan: Atypical presentation for cardiac pain but with positive Troponin. CTA chest showing no PE but splenomegaly and myelofibrosis. Troponin peaked at 0.27. EKG on admission showing borderline ST changes but overall normal appearing EKG. Continue ASA. Lipid panel results noted. Continue Lipitor. Suspect realted to the AFib. (4) Elevated troponin: Code(s): R77.8 - Other specified abnormalities of plasma proteins Status: Acute Assessment and Plan: In the setting of atypical right-sided chest pain. Troponin peaked at 0.27. As above. (5) Hypertension: Qualifiers: Hypertension type: essential hypertension Qualified Code(s): I10 - Essential (primary) hypertension Code(s): I10 - Essential (primary) hypertension Status: Chronic Assessment and Plan: Blood pressures reviewed 3/ Blood pressure remains well controlled. Will continue current medications with Cozaar. (6) Abnormal urinalysis: Code(s): R82.90 - Unspecified abnormal findings in urine Status: Acute Assessment and Plan: Urinalysis showing 3+ LE with 31-50WBC. UCx growing mixed ancelmo suggesting contaminate. 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 WBC 58K on admission but better yesterday at 47K. Plt count elevated as well but trending down. No anemia. Ruxolitinib resumed. 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 Feels much yareli. No CP or palpitations. She has been having episodes of palpitations mostly at night prior to admission. No n/v. Having loose stools from the abx which is not uncommon for her. Exam Narrative: Exam Narrative: AF 98.4 123/84 77 14 98% ra Gen - NARD Chest - CTA bilaterally, nml RR CV - irregular, no murmurs; Tele showing sinus arrhythmia, PACs Abd - Soft, NT/ND, Positive BS. Ext - No pedal edema, 2+ DP bilaterally Neuro - Alert and oriented. Psych - Nml mood and affect Skin - Warm and dry Objective Data Vital Signs Vital Signs: Vital Signs - 24 hr 01/03/21 16:00 01/03/21 18:00 01/03/21 19:22 Temperature 98.6 F 97.2 F L Pulse Rate
[2021-01-04] MEDS: APIXABAN 5 MG TABLET PO (21:13)
[2021-01-05] VITALS (8 sets, daily range): BP systolic 127–131; BP diastolic 65–93; PULSE 61–94; RESP 14–16; TEMP 36.2–36.7; O2SAT 96–98
[2021-01-05 04:43] LABS: Hematocrit 40.2 % (37.0-47.0); Hemoglobin 12.5 g/dL (12.0-15.0); Mean Corpuscular HGB Conc 31.1 g/dl (32-36); Mean Corpuscular Hemoglobin 24.4 pg (26-34); Mean Corpuscular Volume 78.5 fl (80-100); Platelet Count Result 615 k/mm3 (150-375); Red Blood Count 5.12 M/mm3 (4.2-5.4); Red Cell Distribution Width 22.1 % (11.5-14.5)
[2021-01-05 05:02] LABS: Alanine Aminotransferase 13 U/L (4-35); Albumin Level 3.9 g/dL (3.5-5.1); Alkaline Phosphatase 72 U/L (38-126); Anion Gap 5 mmol/L (8-16); Aspartate Amino Transferase 36 U/L (14-36); Bilirubin,Total 0.4 mg/dL (0.2-1.3); Blood Urea Nitrogen 11 mg/dL (7-17); Calcium 8.9 mg/dL (8.4-10.2); Carbon Dioxide 27 mmol/L (22-30); Chloride 107 mmol/L (98-107); Estimated CRCL calculation 41 ml/min; Estimated Glomerular Filt Rate > 60; Glucose 98 mg/dL (65-105); Potassium 3.7 mmol/L (3.4-5.0); Sodium 139 mmol/L (137-145)
[2021-01-05 05:03] LABS: White Blood Count 58.5 K/mm3 (4.5-10.0)
[2021-01-05 05:06] LABS: Band Neutrophils Percent 10 % (0-6); Basophils Absolute Manual 4.68 K/mm3 (0.0-0.1); Basophils Percent Manual 8 % (0-1); Eosinophils Absolute Manual 0.58 K/mm3 (0.02-0.5); Eosinophils Percent Manual 1 % (0-4); Lymphocytes Absolute Manual 7.02 K/mm3 (1.1-4.5); Monocytes Absolute Manual 0.58 K/mm3 (0.1-0.90); Monocytes Percent Manual 1 % (3-9); Neutrophils Absolute Manual 45.63 K/mm3 (1.7-7.2); Neutrophils Percent Manual 68 % (46-73); Platelet Estimate Adequate (Adequate); Total Cells Counted 100
[2021-01-05] MEDS: ASPIRIN 81 MG ENTERIC TABLET PO (08:49)
[2021-01-05] MEDS: APIXABAN 5 MG TABLET PO (08:49)
[2021-01-05] MEDS: SOTALOL HCL 80 MG TABLET PO (08:50)
[2021-01-05] MEDS: CHOLECALCIFEROL 1,000 UNITS TABLET 2000 UNITS PO (08:50)
[2021-01-05] MEDS: LOSARTAN POTASSIUM 100 MG TABLET PO (08:50)
[2021-01-05] MEDS: PANTOPRAZOLE 40 MG TABLET PO (08:51)
[2021-01-05] MEDS: ATORVASTATIN 40 MG TABLET PO (08:51)
[2021-01-05] MEDS: PARoxetine 5 MG TABLET PO (08:51)
[2021-01-05] MEDS: AMPICILLIN SULB 3 GM/NS 100 ML 3 GM/100 ML VIAL IVPB ×2 (08:52→13:11)
[2021-01-05] MEDS: PREGABALIN (*CRX) 75 MG CAPSULE 150 MG PO (08:57)
[2021-01-05] MEDS: ACETAMINOPHEN 325 MG TABLET 650 MG PO (08:57)
--- NOTE | 2021-01-05 11:28 | PM.PNCARD ---
Progress Note: A&P Additional Plan 75-year-old woman with: Paroxysmal atrial fibrillation appears to be responding well to sotalol and anticoagulation with apixaban. These will be continued. She has a large masslike structure attached or associated with the posterior mitral valve leaflet. This was felt to possibly represent a vegetation but on my personal review it could also and in my opinion more likely represent an atypically located myxoma. If blood cultures become negative I believe intravenous antibiotics can be stopped and she can be discharged and we will arrange for follow-up/consultation with cardiothoracic surgery [facility]. Epifanio Gonsales MD [facility] Subjective Date/time seen: Date of service: 01/05/21 11:28 Interval history: 75-year-old lady with: Paroxysmal atrial fibrillation seen in consultation yesterday and started on sotalol. Shortly after the 1st dose she has converted back to sinus rhythm is currently asymptomatic. She is currently anticoagulated with Lovenox. Echocardiogram done yesterday surprisingly shows a large mass associated with the posterior mitral valve leaflet. I received a phone notification of this yesterday from the metal neutralizer indicating they were concerned about a vegetation. 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 Had a long discussion with the patient about this today. She is asymptomatic and feels well 01/05/2021: Patient feels well asymptomatic. Maintaining sinus rhythm. Blood cultures are still being reported as pending. Exam Const: General: comfortable and no acute distress HENMT: Mouth: Yes moist mucous membranes Eyes: Sclera: sclerae normal Pupils: Equal, round and reactive pupils present Neck: Neck: supple and no JVD Thyroid: thyroid normal Resp: Effort & Inspection: normal respiratory effort Auscultation: clear to auscultation bilaterally Cardio: Rate: regular rate and tachycardic Rhythm: regular rhythm and abnormal rhythm irregularly irregular Other: Patient has a systolic ejection murmur at the right upper sternal border because of her aortic sclerosis. No audible MR GI: Auscultation: normal bowel sounds Skin: General skin exam: normal color Neuro: Cranial nerves: Yes Equal, round and reactive pupils present Cognition (Neuro): normal cognition Extrem: General: normal to inspection Objective Data Vital Signs Vital Signs: Vital Signs - 24 hr 01/04/21 11:35 01/04/21 12:00 01/04/21 14:00 Temperature 36.9 C Pulse Rate 71 69 77 Respiratory Rate 14 Blood Pressure 123/84 Pulse Oximetry 98 01/04/21 15:51 01/04/21 16:00 01/04/21 18:00 Temperature 36.8 C Pulse Rate 86 72 77 Respiratory Rate 16 Blood Pressure 97/65 L Pulse Oximetry 98 01/04/21 18:50 01/04/21 20:00 01/04/21 21:12 Temperature 36.8 C Pulse Rate 78 92 92 Respiratory Rate 16 16 Blood Pressure 126/73 Pulse Oximetry 98 98 01/04/21 22:00 01/04/21 23:46 01/05/21 00:00 Temperature 36.4 C Pulse Rate 74 68 86 Respiratory Rate 14 14 Blood Pressure 129/70 Pulse Oximetry 97 97 01/05/21 02:00 01/05/21 04:00 01/05/21 06:00 Temperature 36.3 C L Pulse Rate 69 73 75 Respiratory Rate 14 Blood Pressure 127/65 Pulse Oximetry 98 01/05/21 08:00 01/05/21 10:00 Temperature 36.2 C L Pulse Rate 94 64 Respiratory Rate 16 Blood Pressure 131/83 Pulse Oximetry 96 Intake/Output Intake/Output: Intake & Output 01/02/21 01/03/21 01/04/21 01/05/21 23:59 23:59 23:59 23:59 Intake Total 920 1500 2210 670 Output Total 1200 1100 1000 Balance 140 643 4130 -330 Meds/Results Medications: Active Medications Generic Name Dose Route Start Last Admin Trade Name Freq PRN Reason Stop Dose Admin Acetaminophen 650
--- NOTE | 2021-01-05 14:45 | PM.DS ---
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 BCx ordered 3/6 and IV abx started. Patient has had a recent tooth pulled and she is immunosuppressed. She does not have significant valvular damage. We monitored the blood cultures and were negative for 2 days. The patine did not have any signs/symptoms of endocarditis. Discussed with Cardiology who re-evaluated the images and felt that this seems more likely a myxoma. Plan for discharge with patient to follow-up with Cardiothoracic surgery at [place]. Metal Organ Pipe Maker to arrange this. (2) Atrial fibrillation: Code(s): I48.91 - Unspecified atrial fibrillation Status: Acute Assessment and Plan: Patient developed AFib and probably paroxysmal by hx. EKG showing AFib with RVR and ST depression in the anterolateral leads with PVC. TSH normal. Given IV metoprolol and started on Sotalol. Full dose Lovenox but now changed to Eliquis. She has converted to normal sinus rhythm. Cardiology following and appreciate their input. (3) Right-sided chest pain: Code(s): R07.9 - Chest pain, unspecified Status: Acute Assessment and Plan: Atypical presentation for cardiac pain but with positive Troponin. CTA chest showing no PE but splenomegaly and myelofibrosis. Troponin peaked at 0.27. EKG on admission showing borderline ST changes but overall normal appearing EKG. Elevated Trop likely Type II CA from the AFib. LDL 58. We continued her ASA. (4) Elevated troponin: Code(s): R77.8 - Other specified abnormalities of plasma proteins Status: Acute Assessment and Plan: In the setting of atypical right-sided chest pain. Troponin peaked at 0.27. As above. (5) Hypertension: Qualifiers: Hypertension type: essential hypertension Qualified Code(s): I10 - Essential (primary) hypertension Code(s): I10 - Essential (primary) hypertension Status: Chronic Assessment and Plan: Blood pressure was monitored closely. Blood pressure remained well controlled. We continued current medications with Cozaar. (6) Abnormal urinalysis: Code(s): R82.90 - Unspecified abnormal findings in urine Status: Acute Assessment and Plan: Urinalysis showing 3+ LE with 31-50WBC. UCx growing mixed ancelmo suggesting contaminate. 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 WBC 58K on admission. WBC improved to 47K but back to 58K at the time of discharge. Plt count elevated as well but stable in the 600K-700K range. No anemia. Ruxolitinib resumed. DS: Summary Hospital Course Reason for hospitalization: 75yo female with myelofibrosis here for chest pain and found to have AFib. Please see H&P for details. Hospital Course: Please see above for details of hospital course. Status at Discharge Cognitive/behavioral status at discharge: stable Time Spent with Patient Time attestation: Total time spent providing and/or coordinating discharge services:38 minutes Time spent: Greater than 30 minutes Exam Narrative: Exam Narrative: AF 98.1 131/93 69 16 96% ra Gen - NARD Chest - CTA bilaterally, nml RR CV - RRR S1/S2; Tele showing occasional sinus arrhythmia Abd - Soft, NT/ND, Positive BS. Ext - No pedal edema, 2+ DP bilaterally Psych - Nml mood and affect Skin - Warm and dry DS: Data Data Completed and Pending Labs on day o
--- NOTE | 2021-01-13 10:09 | PC.NURSE ---
Blood cx are negative. Dr. Teresita gamez.
== END 2021-01-05 16:45 | disposition home or self-care (01) | DRG 281 ==
LOC: ANHED 13:26 → ANHIMU 15:52
PROVIDERS: Physician Assistant; Admitting Provider Internal Medicine; Emergency Provider Emergency Medicine; PCP Internal Medicine Rheumatology; Visit Provider Internal Medicine
DX: D15.1 Benign neoplasm of heart (principal); I21.A1 Myocardial infarction type 2; D75.81 Myelofibrosis; D45 Polycythemia vera; I48.0 Paroxysmal atrial fibrillation; R82.90 Unspecified abnormal findings in urine; M16.11 Unilateral primary osteoarthritis, right hip; I10 Essential (primary) hypertension; Z90.49 Acquired absence of other specified parts of digestive tract; Z90.721 Acquired absence of ovaries, unilateral; Z87.891 Personal history of nicotine dependence
CPT/HCPCS: 36415; 71045; 71275; 80048; 80053; 80061; 80076; 81001; 83735; 83880; 84443; 84484; 85025; 85027; 85380; 85610; 85652; 85730; 86140; 87040; 87086; 87088; 93005; 93306; 96372; 96374; 96375; 99291; A9270; G0378; J0295; J1650; J2270; J3370; Q9967